=== PATIENT | female | born 1935 | race Caucasian/White ===

== ENCOUNTER 2017-03-07 08:58 | Inpatient (IN) ==
--- NOTE | 2017-03-06 21:09 | Discharge Summary ---
<Jennifer Lemus - Last Filed: 03/06/17 21:07> Date of Encounter: 03/06/17 - Discharge Diagnosis (1) Arthritis of left hip Priority: Primary Status: Acute (2) Status post total hip replacement, left Priority: Primary Status: Acute (3) HTN (hypertension) Priority: Secondary Status: Chronic Qualifiers: Hypertension type: essential hypertension Qualified Code(s): I10 - Essential (primary) hypertension (4) DMII (diabetes mellitus, type 2) Priority: Secondary Status: Chronic Qualifiers: Diabetes mellitus complication status: with unspecified complications Diabetes mellitus intermediate insulin use: unspecified intermediate insulin use status Qualified Code(s): E11.8 - Type 2 diabetes mellitus with unspecified complications (5) Thyroid disease Priority: Secondary Status: Chronic (6) History of TIA (transient ischemic attack) Priority: Secondary Status: Chronic (7) Obesity Priority: Secondary Status: Chronic Qualifiers: Obesity type: due to excess calories Obesity classification: unspecified obesity classification Serious obesity comorbidity presence: unspecified whether serious comorbidity present Qualified Code(s): E66.09 - Other obesity due to excess calories; Z68.37 - Body mass index (BMI) 37.0-37.9, adult; Z68.37 - Body mass index (BMI) 37.0-37.9, adult (8) History of cardiac catheterization Priority: Secondary Status: Chronic (9) Decreased GFR Priority: Secondary Status: Chronic - Discharge Medications Home Medications: Aspirin Enteric Coated [Aspirin EC] 325 mg PO DAILY #21 tablet. 03/06/17 [Rx] OxyCODONE Immed Rel [Roxicodone 5 MG] 5 mg PO Q6HR PRN #28 tablet 03/06/17 [Rx] Aspirin [Lo-Dose Aspirin EC] 81 mg PO DAILY 03/07/17 [History] Bisoprolol Fumarate [Zebeta] 10 mg PO DAILY 03/07/17 [History] Furosemide [Lasix] 40 mg PO BID 03/07/17 [History] Insulin ASPART [NovoLOG] 0 unit SQ TIDWM 03/07/17 [History] Insulin DETEMIR [Levemir] 20 unit SQ HS 03/07/17 [History] Levothyroxine Sodium [Levoxyl] 175 mcg PO DAILY 03/07/17 [History] Lisinopril [Zestril] 20 mg PO BID 03/07/17 [History] Omeprazole [PriLOSEC] 40 mg PO DAILY 03/07/17 [History] Potassium Chloride [K-Tab ER] 10 meq PO DAILY 03/07/17 [History] metFORMIN [Glucophage] 500 mg PO BID 03/07/17 [History] Allergies/Adverse Reactions: 3 Allergy/AdvReac Type Severity Reaction Status Date / Time Amoxicillin [From Augmentin] Allergy Rash Verified 03/07/17 09:35 clavulanic acid Allergy Rash Verified 03/07/17 09:35 [From Augmentin] Penicillins Allergy patient is Verified 03/07/17 09:35 unsure Primary care physician: PCP NONE - Patient Status Disposition: Transfer Inpatient Rehab Fac Condition: Good - Discharge Instructions Follow Up With: NONE,PCP [Primary Care Provider] - - Hospital Course Hospital course: Ms. Herrera is a 81 year old female - Time Spent with Patient Total time spent providing and/or coordinating discharge services: <Ahsan Jean - Last Filed: 03/10/17 08:14> Date of Encounter: 03/10/17 Time of Encounter: 08:13 - Discharge Diagnosis (1) Arthritis of left hip Priority: Primary Status: Chronic (2) Status post total hip replacement, left Priority: Primary Status: Acute (3) HTN (hypertension) Priority: Secondary Status: Chronic Qualifiers: Hypertension type: essential hypertension Qualified Code(s): I10 - Essential (primary) hypertension (4) DMII (diabetes mellitus, type 2) Priority: Secondary Status: Chronic Qualifiers: Diabetes mellitus complication status: with unspecified complications Diabetes mellitus instrument technician insulin use: unspecified intermediate insulin use status Qualified Code(s): E11.8 - Type 2 diabetes mellitus with unspecified complications (5) Thyroid disease Priority: Secondary Status: Chronic (6) History of TIA (transient ischemic attack) Priority: Secondary Status: Chronic (7) Obesity Priority: Secondary Status: Chronic Qualifiers: Obesity type: due to excess calories Obesity classification: adult class 2 (BMI 35 - 39.9) Serious obesity comorbidity presence: unspecified whether serious comorbidity present Body mass index: BMI 37.0-37.9 Qualified Code(s) : E66.09 - Other obesity due to excess calories; Z68.37 - Body mass index (BMI) 37.0-37.9, adult; Z68.37 - Body mass index (BMI) 37.0-37.9, adult (8) History of cardiac catheterization Priority: Secondary Status: Chronic (9) Decreased GFR Priority: Secondary Status: Chronic (10) Acute blood loss anemia Priority: Primary Status: Acute Primary care physician: PCP NONE - Patient Status Functional capacity at discharge: uses cane/walker Overall status at discharge: patient is progressing back to baseline - Hospital Course Hospital course: Ms. Herrera is a 81 year old female The patient had an uneventful postoperative course. They received antibiotics and physical therapy and were discharged in stable condition. There will follow -up in the office in 2 weeks. Status post left total hip replacement - Time Spent with Patient Total time spent providing and/or coordinating discharge services:
--- NOTE | 2017-03-06 21:14 | Physician Discharge Referral ---
<Jennifer Lemus L - Last Filed: 03/06/17 21:13> ExtendedCare Referral Info Transfer To: [facility] Provider in Charge: Provider in Charge after Transfer: PCP Institutional Level of Care: Skilled - Diagnosis (1) Arthritis of left hip Priority: Primary Status: Acute (2) Status post total hip replacement, left Priority: Primary Status: Acute (3) HTN (hypertension) Priority: Secondary Status: Chronic (4) DMII (diabetes mellitus, type 2) Priority: Secondary Status: Chronic (5) Thyroid disease Priority: Secondary Status: Chronic (6) History of TIA (transient ischemic attack) Priority: Secondary Status: Chronic (7) Obesity Priority: Secondary Status: Chronic (8) History of cardiac catheterization Priority: Secondary Status: Chronic (9) Decreased GFR Priority: Secondary Status: Chronic Expected Duration of Placement: < 30 days Prognosis: Good Aware of Diagnosis: Patient Aware of Prognosis: Patient - Transfer Medications Home Medications: Aspirin Enteric Coated [Aspirin EC] 325 mg PO DAILY #21 tablet. 03/06/17 [Rx] OxyCODONE Immed Rel [Roxicodone 5 MG] 5 mg PO Q6HR PRN #28 tablet 03/06/17 [Rx] Aspirin [Lo-Dose Aspirin EC] 81 mg PO DAILY 03/07/17 [History] Bisoprolol Fumarate [Zebeta] 10 mg PO DAILY 03/07/17 [History] Furosemide [Lasix] 40 mg PO BID 03/07/17 [History] Insulin ASPART [NovoLOG] 0 unit SQ TIDWM 03/07/17 [History] Insulin DETEMIR [Levemir] 20 unit SQ HS 03/07/17 [History] Levothyroxine Sodium [Levoxyl] 175 mcg PO DAILY 03/07/17 [History] Lisinopril [Zestril] 20 mg PO BID 03/07/17 [History] Omeprazole [PriLOSEC] 40 mg PO DAILY 03/07/17 [History] Potassium Chloride [K-Tab ER] 10 meq PO DAILY 03/07/17 [History] metFORMIN [Glucophage] 500 mg PO BID 03/07/17 [History] Allergies/Adverse Reactions: 3 Allergy/AdvReac Type Severity Reaction Status Date / Time Amoxicillin [From Augmentin] Allergy Rash Verified 03/07/17 09:35 clavulanic acid Allergy Rash Verified 03/07/17 09:35 [From Augmentin] Penicillins Allergy patient is Verified 03/07/17 09:35 unsure - Respiratory Orders None Smoking Cessation: Smoking cessation has been advised. For more information, call the [facility] Quit Line at 8-408-BBFR-NOW. - Ancillary Orders May use pressure relief devices daily prn, May go on [place] w/family/respon republican w /meds at nurse discretion PRN, May consult with Dentist, Low Pressure Boiler Operator, Squad Sergeant PRN - Mobility Orders Chair, Ambulate - Rehabiliation Orders Rehab Potential: Good Rehab Orders: ROM Exercises, Evaluation for Physical Therapy, Evaluation for Occupational Therapy - Treatments Skin tear care topically daily PRN per policy List/Other: Opsite dressing, leave intact until first post-operative visit. If dressing becomes >50% saturated, contact office, remove dressing and place appropriate dressing in its place. Do not allow for dressing to get wet. Zipline dressing in place, plan to remove at post-operative day #14-16. Total Joint Precautions x 6 weeks Apply cold therapy 3-6x/day for 20 minutes at a time. Encourage ambulation throughout the day Use Incentive spirometer 10x/hour. Elevate affected extremity above heart as tolerated. Brace: Wear hip abduction immobilizer at night x 6 weeks. - Diet Orders Regular CERTIFICATION: I certify that the transfer of the above named patient to an Extended Care Facility is necessary for the continuing treatment of the diagnosis listed. The above information is true and accurate reflection of patient's current condition. Confidential - Redisclosure prohibited without a patient's written consent. <Ahsan Jean - Last Filed: 03/10/17 08:14> - Diagnosis (1) Arthritis of left hip Status: Chronic (2) Status post total hip replacement, left Status: Acute (3) HTN (hypertension) Status: Chronic (4) DMII (diabetes mellitus, type 2) Status: Chronic (5) Thyroid disease Status: Chronic (6) History of TIA (transient ischemic attack) Status: Chronic (7) Obesity Status: Chronic (8) History of cardiac catheterization Status: Chronic (9) Decreased GFR Status: Chronic (10) Acute blood loss anemia Status: Acute - Respiratory Orders Smoking Cessation: Smoking cessation has been advised. For more information, call the [facility] Quit Line at 7-999-QZEQ-NOW. CERTIFICATION: I certify that the transfer of the above named patient to an Extended Care Facility is necessary for the continuing treatment of the diagnosis listed. The above information is true and accurate reflection of patient's current condition. Confidential - Redisclosure prohibited without a patient's written consent.
--- NOTE | 2017-03-07 09:13 | History & Physical Report ---
Date of Encounter: 03/07/17 Time of Encounter: 09:12 24 Hour HP Update - Instructions Instructions: If the History and Physical is less than 30 days old and was completed prior to A.M. admission and or procedure and has NOT been updated on calendar day of procedure please complete this update prior to performing procedure. - Update Patient reports changes in Medical Condition: No Changes in examination, assessment, or condition: No Changes in Medication: No Preop tests/diagnostics Reviewed: Yes Surgery Remains Indicated: Yes Consent for Planned Operative Procedure(s) Verified: Yes - Pre-Operative Checklist Preoperative Checklist Indicated: No Prophylactic Antibiotic Ordered: Yes Is VTE Prophylaxis Indicated?: Yes
[2017-03-07] MEDS ORDERED: Clindamycin 900 MG/50 ML 900 MG/50 ML IV.SOLN IVPB ONE (09:20)
[2017-03-07] MEDS ORDERED: Ringers Solution, Lactated 1,000 ML IVC SCH ×2 (09:30→14:34)
[2017-03-07] MEDS ORDERED: Ethanol\\Acetic Acid\\Na Ace\\Ben 1,000 ML IRRIG.SOLN IR ONE (10:05)
--- NOTE | 2017-03-07 10:19 | Anesthesia Evaluation PreOp ---
Date of Encounter: 03/07/17 Time of Encounter: 10:16 - Past History Planned Operation: Left total hip arthroplasty, robotic Cardiac History: HTN Pulmonary History: Denies Any Significant HX MFG ASSOC History: CVA (mini strokes - no symptoms now) Other Medical History: Diabetes Type II (uses insulin; good control), GERD Anesthesia History: No Prior Anesthetic Complications Alcohol Use: none Drug use: none Medications and Allergies Aspirin Enteric Coated [Aspirin EC] 325 mg PO DAILY #21 tablet. 03/06/17 [Rx] OxyCODONE Immed Rel [Roxicodone 5 MG] 5 mg PO Q6HR PRN #28 tablet 03/06/17 [Rx] Aspirin [Lo-Dose Aspirin EC] 81 mg PO DAILY 03/07/17 [History] Bisoprolol Fumarate [Zebeta] 10 mg PO DAILY 03/07/17 [History] Furosemide [Lasix] 40 mg PO BID 03/07/17 [History] Insulin ASPART [NovoLOG] 0 unit SQ TIDWM 03/07/17 [History] Insulin DETEMIR [Levemir] 20 unit SQ HS 03/07/17 [History] Levothyroxine Sodium [Levoxyl] 175 mcg PO DAILY 03/07/17 [History] Lisinopril [Zestril] 20 mg PO BID 03/07/17 [History] Omeprazole [PriLOSEC] 40 mg PO DAILY 03/07/17 [History] Potassium Chloride [K-Tab ER] 10 meq PO DAILY 03/07/17 [History] metFORMIN [Glucophage] 500 mg PO BID 03/07/17 [History] 3 Allergy/AdvReac Type Severity Reaction Status Date / Time Amoxicillin [From Augmentin] Allergy Rash Verified 03/07/17 09:35 clavulanic acid Allergy Rash Verified 03/07/17 09:35 [From Augmentin] Penicillins Allergy patient is Verified 03/07/17 09:35 unsure - Meds/Allergy Pre-op Review Medications Reviewed: Yes Allergies Reviewed: Yes Beta Blockers on Current Med List: Yes (bisoprolol) If Beta Blockers taken, Date/Time (Last Dose taken): 03-07-17 5:30 am Anesthesia Results - Labs Laboratory Tests 02/24/17 02/24/17 02/24/17 16:30 16:30 16:30 WBC 8.0 Hgb 12.5 Hct 39.7 Plt Count 246 PT 10.6 INR 1.0 APTT 30.0 Sodium 138 Potassium 3.8 Chloride 98 Carbon Dioxide 28 BUN 17 Creatinine 1.18 H Est GFR ( Amer) 53 L Est GFR (Non-Af Amer) 44 L BUN/Creatinine Ratio 14 Est Mean Plasma Glucose Hemoglobin A1c 02/24/17 16:30 WBC Hgb Hct Plt Count PT INR APTT Sodium Potassium Chloride Carbon Dioxide BUN Creatinine Est GFR ( Amer) Est GFR (Non-Af Amer) BUN/Creatinine Ratio Est Mean Plasma Glucose 157 Hemoglobin A1c 7.1 H - Imaging EKG: report reviewed, image reviewed (SINUS RHYTHM MARKED LEFT AXIS DEVIATION PATTERN CONSISTENT WITH PULMONARY DISEASE POOR R WAVE PROGRESSION) Additional studies: cardiac cath: EF 60% no signficiant LV-Ao gradient No sign MR minimal coronary disease Anesthesia Exam Last Vital Signs Temp 98.0 F 03/07/17 09:33 Pulse 69 03/07/17 09:33 Resp 18 03/07/17 09:33 BP 179/85 03/07/17 09:33 Pulse Ox 97 03/07/17 09:33 Weight: 97 kg NPO (# of Hours): > 8 hrs - HEENT Pupil (Motor): Pupils equal, EOMI Mallampati: II Teeth: Edentulous Oral Opening: Greater than 3 - MFG ASSOC LOC: Oriented MFG ASSOC Motor: Normal RUE, Normal LUE, Normal RLE, Normal LLE, Normal Face - Cardiac Rhythm: Regular Murmur: None - Pulmonary Breath Sounds: bilateral Clear Respiratory Effort: Symmetrical Anesthesia Assess/Plan ASA Score: 3 Modified Rockledge Scale for Level of Consciousness: Cooperative, oriented, and tranquil Anesthetic Plan: General Monitoring Plan: Standard Monitors Recovery Plan: PACU
[2017-03-07] MEDS ORDERED: *HR* Rocuronium Bromide 50 MG/5 ML VIAL ONE (11:36)
[2017-03-07] MEDS ORDERED: *HR* Propofol 200 MG/20 ML VIAL IVP ONE (12:01)
[2017-03-07] MEDS ORDERED: Lidocaine -MPF 2% 2 ML VIAL ONE (12:01)
[2017-03-07] MEDS ORDERED: *HR* FentaNYL (PF) 100 MCG/2 ML VIAL ONE (12:01)
[2017-03-07] MEDS ORDERED: *HR* HYDROmorphone (PF) 1 MG/ML SYRINGE IVP PRN ×2 (12:05→14:34)
[2017-03-07] MEDS ORDERED: *HR* Labetalol 20 MG/4 ML SYRINGE IVP PRN (12:05)
[2017-03-07] MEDS ORDERED: Ondansetron 4 MG/2 ML VIAL IVP PRN ×2 (12:05→14:34)
[2017-03-07] MEDS ORDERED: *HR* HYDROmorphone 2 MG/ML SYRINGE ONE (12:31)
--- NOTE | 2017-03-07 12:45 | Orthopedic Operative Note ---
Date of procedure: 03/07/17 Pre-op diagnosis: left hip arthritis Post-op diagnosis: same Procedure: Procedure: left Total Hip Replacment robotic-assisted Estimated blood loss: 300 cc Hardware: Metal and polyethylene replacement. Sheeba DM Cup: 52 cup 8 Femoral size stem Head: 8head with Jane Procedural Notes: Grade 4 arthritic changes femoral head acetabular socket, procedure performed with robotic assistance. Operative procedure: The patient was brought to the operating room and placed on the operating room table. After general anesthesia was administered the patient was placed in the lateral decubitus position with the operative leg up. All pressure points were padded appropriately and the head was stabilized in the neutral position. The operative extremity was prepped and draped in the sterile surgical fashion patient received IV antibiotic prior to skin incision. 3 Steinmann pins were placed in the iliac crest 3 cm proximal to the anterior superior iliac spine this was for the robotic-assisted sensor. This was done through a small 2 cm incision. A standard posterior approach is made to the operative hip, the incision was made through the skin and subcutaneous tissue hemostasis was obtained with Bovie cautery. Using careful sharp dissection the fascia was identified and incised exposing the external rotators. The femoral checkpoint was placed leg length was measured at this time utilizing robotic assistance operative leg 4 mm shorter than non. The external rotators were released off the greater trochanter and tagged with #2 FiberWire suture. The capsule was T'd open and the hip was brought into internal rotation. Patient noted to have grade 4 arthritic changes femoral head. The femoral neck cut was made at the appropriate level roughly 10mm proximal to the lesser trochanter aced on preoperative templating. An anterior capsulotomy was performed for the anterior retractor. Soft tissues removed from the acetabulum. Patient noted to have grade 4 arthritic changes acetabulum. The acetabulum checkpoint was placed confirmed. The acetabulum was then mapped with robotic assistance. Based on the preoperative plan the acetabulum was reamed in one step with a 52 reamer. [id number] was impacted with robotic assistance and 58 degrees of abduction and 17 degrees of anteversion. The hip was brought back in to internal rotation and prepared with the box car checker followed by the canal finder followed by the reaming process to a size 8broaching process in 20 degrees anteversion. It was broached up to the appropriate size 8. Trial reduction revealed leg lengths close to normal. The femoral implant was impacted in place in 20 degrees of anteversion. Trial reduction found the hip to be stable with 8 head and Jane. The trials were removed and the real implants were impacted in place. The hip was reduced, patient had robotic confirmed leg length of 6 mm longer than the contralateral side. The hip had excellent stability with forward flexion to 90 degrees adduction of 30 degrees and internal rotation of 60 degrees. The hip had no shuck. The hips after 2 minutes with a Betadine saline solution. It was irrigated out with 2 L of pulse irrigation. The checkpoints were removed, Steinmann pins were removed. The pin incision and the hip were closed by the PA as well as the hip. The deep tissue was irrigated and closed deep with #1 PDS suture superficially with 0 PDS suture and skin was closed with Dermabond and zip tie. The patient was placed in a sterile dressing and abduction pillow. The patient was extubated and transferred to the recovery room in stable condition. Anesthesia: ANJUM Surgeon: Ahsan Jean Tmh Teacher: Charlotte Paez Condition: stable Disposition: PACU
[2017-03-07] MEDS ORDERED: Neostigmine Methylsulfate 3 MG/3 ML SYRINGE ONE (13:06)
[2017-03-07 13:46] LABS: Hematocrit 37.9 % (35.3-44.9); Hemoglobin 11.9 g/dL (11.5-15.4)
[2017-03-07] MEDS ORDERED: Dextrose Gel 15 GM PO PRN ×2 (14:34)
[2017-03-07] MEDS ORDERED: Naloxone 0.4 MG/ML INJ IVP PRN (14:34)
[2017-03-07] MEDS ORDERED: *HR* OxyCODONE Immed Rel 5 MG TABLET PO PRN (14:34)
[2017-03-07] MEDS ORDERED: Temazepam 15 MG CAPSULE PO PRN (14:34)
[2017-03-07] MEDS ORDERED: D5% in Water 1,000 ML IVC PRN (14:34)
[2017-03-07] MEDS ORDERED: MOM Conc 10 ML UD.LIQ PO PRN (14:34)
[2017-03-07] MEDS ORDERED: Sennosides 8.6 MG TABLET PO PRN (14:34)
[2017-03-07] MEDS ORDERED: *HR* Dextrose 50 % in Water (Syg) 50 ML SYRINGE IVP PRN (14:34)
[2017-03-07] MEDS: Insulin LISPRO 300 UNITS/3 ML VIAL SQ SCH ×3 (14:40→20:40)
--- NOTE | 2017-03-07 14:50 | Anesthesia Evaluation Post Op ---
Date of Encounter: 03/07/17 Time of Encounter: 14:49 - Vital Signs Vital Signs: Last Vital Signs Temp 97.4 F L 03/07/17 14:25 Pulse 50 03/07/17 14:25 Resp 16 03/07/17 14:25 BP 135/77 03/07/17 14:25 Pulse Ox 97 03/07/17 14:25 - Lungs Lungs: Clear Ascult./Percussion - Airway Airway: Non-obstructed - Cardiovascular Regular Rate - Mental Status Mental Status: Alert & Oriented, Answers Appropriately - Pain Pain Scale: 2 - Nausea Vomiting Nausea Vomiting: Not Present - Hydration Hydration: NPO - Discharge PostOp Status: Transfer Patient to floor
[2017-03-07] MEDS: Clindamycin 900 MG/50 ML 900 MG/50 ML IV.SOLN IVPB SCH ×2 (17:10→23:08)
[2017-03-07] MEDS: *HR* Enoxaparin 30 MG/0.3 ML SYRINGE SQ SCH (17:11)
[2017-03-07] MEDS: Furosemide 40 MG TABLET PO SCH (17:11)
[2017-03-07] MEDS: Ascorbic Acid 500 MG TABLET PO SCH (17:11)
[2017-03-07] MEDS ORDERED: *HR* Promethazine 25 MG/ML VIAL IVP ONE (17:26)
[2017-03-07] MEDS ORDERED: *HR* Enoxaparin 30 MG/0.3 ML SYRINGE SQ SCH (18:00)
[2017-03-07] MEDS: *HR* Metformin 500 MG TABLET PO SCH (20:44)
[2017-03-07] MEDS: Insulin DETEMIR 100 UNIT/ML X5UNITS SQ SCH (20:45)
[2017-03-07] MEDS: Lisinopril 20 MG TABLET PO SCH (20:45)
[2017-03-07] MEDS ORDERED: NON-FORMULARY MEDICATION 1 EACH EACH (Insulin Detemir 20 UNIT) SQ SCH (21:00)
[2017-03-07] MEDS: *HR* OxyCODONE Immed Rel 5 MG TABLET PO PRN (23:17)
[2017-03-08] MEDS: *HR* Enoxaparin 30 MG/0.3 ML SYRINGE SQ SCH ×2 (05:12→16:58)
[2017-03-08 06:21] LABS: Hematocrit 31.3 % (35.3-44.9)
[2017-03-08 06:23] LABS: Hemoglobin 9.7 g/dL (11.5-15.4)
[2017-03-08 06:43] LABS: BUN/Creatinine Ratio 17 (6-26); Blood Urea Nitrogen 17 mg/dL (7-20); Calcium 8.4 mg/dL (8.6-10.8); Carbon Dioxide 22 mEq/L (19-29); Chloride 105 mEq/L (98-109); Glucose 152 mg/dL (70-99); Osmolality,Calculated 287 (280-300); Potassium 4.9 mEq/L (3.5-4.5); Sodium 136 mEq/L (136-145); eGFR For African Americans > 60 (> 60); eGFR For Non-African Americans 52 (> 60)
--- NOTE | 2017-03-08 06:43 | Orthopedics Progress Note ---
Date of Encounter: 03/08/17 Time of Encounter: 06:43 - Assessment and Plan (1) Arthritis of left hip Current Visit: No Status: Chronic (2) Status post total hip replacement, left Current Visit: No Status: Acute (3) HTN (hypertension) Current Visit: No Status: Chronic Qualifiers: Hypertension type: essential hypertension Qualified Code(s): I10 - Essential (primary) hypertension (4) DMII (diabetes mellitus, type 2) Current Visit: No Status: Chronic Qualifiers: Diabetes mellitus complication status: with unspecified complications Diabetes mellitus jail insulin use: unspecified jail insulin use status Qualified Code(s): E11.8 - Type 2 diabetes mellitus with unspecified complications (5) Thyroid disease Current Visit: No Status: Chronic (6) History of TIA (transient ischemic attack) Current Visit: No Status: Chronic (7) Obesity Current Visit: No Status: Chronic Qualifiers: Obesity type: due to excess calories Obesity classification: adult class 2 (BMI 35 - 39.9) Serious obesity comorbidity presence: unspecified whether serious comorbidity present Body mass index: BMI 37.0-37.9 Qualified Code(s) : E66.09 - Other obesity due to excess calories; Z68.37 - Body mass index (BMI) 37.0-37.9, adult; Z68.37 - Body mass index (BMI) 37.0-37.9, adult (8) History of cardiac catheterization Current Visit: No Status: Chronic (9) Decreased GFR Current Visit: No Status: Chronic Subjective Interval history: Patient was seen this morning doing well without complaints. Afebrile vital signs stable. Operative extremity: Neurovascularly intact Dressing clean dry and intact Calves nontender Assessment and plan: Continue with postoperative care Hematocrit 31 Objective Vital signs: Vital Signs Temp Pulse Resp BP Pulse Ox 03/08/17 03:18 98.6 F 71 14 118/70 98 03/07/17 23:02 98.5 F 72 16 157/73 97 03/07/17 18:36 97.9 F 67 16 137/68 98 03/07/17 17:36 146/79 03/07/17 17:25 97.8 F 61 18 146/79 98 03/07/17 16:24 97.8 F 63 17 129/77 99 03/07/17 15:19 97.6 F 56 16 133/75 97 03/07/17 14:54 97.5 F L 49 16 126/63 95 03/07/17 14:25 97.4 F L 50 16 135/77 97 03/07/17 14:14 97.2 F L 52 16 152/76 97 03/07/17 14:04 50 16 144/79 98 03/07/17 13:54 52 16 156/78 97 03/07/17 13:44 97.7 F 54 16 158/79 99 03/07/17 13:34 69 18 172/95 94 03/07/17 13:24 68 18 173/88 98 03/07/17 13:14 97.9 F 80 20 151/88 96 03/07/17 10:30 98.0 F 69 18 179/85 97 03/07/17 09:33 98.0 F 69 18 179/85 97 03/07/17 09:23 98.0 F 69 18 179/85 97 Intake and Output 03/07/17 03/07/17 03/08/17 15:59 23:59 07:59 Intake Total 400 / 400 750 / 750 Output Total 300 / 300 0 / 0 0 / 0 Balance -300 / -300 400 / 400 750 / 750 Intake: IV Fluids 50 / 50 50 / 50 Cleocin Premix 900 MG/50 ML 900 50 / 50 50 / 50 mg In 50 ml @ 50 mls/hr IVPB Q8HR ANETA Rx#:[id number] Oral 350 / 350 700 / 700 Output: Urine 0 / 0 0 / 0 Estimated Blood Loss 300 / 300 Other: # Voids 1 # Urine Diapers 1 Weight 97.069 kg 97.9 kg Blood Glucose* 148 176 Patient Weight 03/08/17 23:59 Weight 97.9 kg - Labs CBC & BMP: 03/08/17 04:31 Labs: Abnormal lab results Hgb 9.7 g/dL (11.5-15.4) L D 03/08/17 04:31 Hct 31.3 % (35.3-44.9) L 03/08/17 04:31 POC Glucose 176 (58-89) H 03/07/17 20:38 - VTE Documentation of Mechanical Device: Venous foot pump, device Consult Discharge Plan - Plan Referrals: NONE,PCP [Primary Care Provider] -
[2017-03-08] MEDS: Furosemide 40 MG TABLET PO SCH ×2 (09:55→16:58)
[2017-03-08] MEDS: Aspirin Enteric Coated 81 MG Tablet PO SCH (09:55)
[2017-03-08] MEDS: *HR* Metformin 500 MG TABLET PO SCH ×2 (09:55→21:00)
[2017-03-08] MEDS: Multivit/Ca/Min/Fe/FA 1 TAB TABLET PO SCH (09:55)
[2017-03-08] MEDS: Lisinopril 20 MG TABLET PO SCH ×2 (09:55→21:00)
[2017-03-08] MEDS: Ascorbic Acid 500 MG TABLET PO SCH ×2 (09:55→16:58)
[2017-03-08] MEDS: Insulin LISPRO 300 UNITS/3 ML VIAL SQ SCH ×4 (09:56→21:01)
[2017-03-08] MEDS: (Bisoprolol Fumarate [Zebeta] 10 MG) PO SCH (09:56)
[2017-03-08] MEDS: *HR* OxyCODONE Immed Rel 5 MG TABLET PO PRN ×2 (09:59→21:06)
--- NOTE | 2017-03-08 16:19 | Event Note ---
Date of Encounter: 03/08/17 Time of Encounter: 16:18 Patient participating in PT, doing well. No new complaints.
[2017-03-08] MEDS: Insulin DETEMIR 100 UNIT/ML X5UNITS SQ SCH (21:00)
[2017-03-09] MEDS: *HR* Enoxaparin 30 MG/0.3 ML SYRINGE SQ SCH ×2 (05:07→18:16)
[2017-03-09 05:19] LABS: Hematocrit 28.5 % (35.3-44.9); Hemoglobin 9.2 g/dL (11.5-15.4)
[2017-03-09 05:54] LABS: Calcium 8.5 mg/dL (8.6-10.8); Potassium 4.4 mEq/L (3.5-4.5)
[2017-03-09] MEDS: Insulin LISPRO 300 UNITS/3 ML VIAL SQ SCH ×4 (07:16→21:19)
--- NOTE | 2017-03-09 07:41 | Orthopedics Progress Note ---
Date of Encounter: 03/09/17 Time of Encounter: 07:41 - Assessment and Plan (1) Arthritis of left hip Current Visit: No Status: Chronic (2) Status post total hip replacement, left Current Visit: No Status: Acute (3) HTN (hypertension) Current Visit: No Status: Chronic Qualifiers: Hypertension type: essential hypertension Qualified Code(s): I10 - Essential (primary) hypertension (4) DMII (diabetes mellitus, type 2) Current Visit: No Status: Chronic Qualifiers: Diabetes mellitus complication status: with unspecified complications Diabetes mellitus halfway insulin use: unspecified halfway insulin use status Qualified Code(s): E11.8 - Type 2 diabetes mellitus with unspecified complications (5) Thyroid disease Current Visit: No Status: Chronic (6) History of TIA (transient ischemic attack) Current Visit: No Status: Chronic (7) Obesity Current Visit: No Status: Chronic Qualifiers: Obesity type: due to excess calories Obesity classification: adult class 2 (BMI 35 - 39.9) Serious obesity comorbidity presence: unspecified whether serious comorbidity present Body mass index: BMI 37.0-37.9 Qualified Code(s) : E66.09 - Other obesity due to excess calories; Z68.37 - Body mass index (BMI) 37.0-37.9, adult; Z68.37 - Body mass index (BMI) 37.0-37.9, adult (8) History of cardiac catheterization Current Visit: No Status: Chronic (9) Decreased GFR Current Visit: No Status: Chronic (10) Acute blood loss anemia Current Visit: Yes Status: Acute Subjective Interval history: Patient was seen this morning doing well without complaints. Afebrile vital signs stable. Operative extremity: Neurovascularly intact Dressing clean dry and intact Calves nontender Assessment and plan: Continue with postoperative care Hematocrit 28 Objective Vital signs: Vital Signs Temp Pulse Resp BP Pulse Ox 03/09/17 06:28 99.1 F 78 18 116/69 97 03/09/17 04:41 98.2 F 79 17 108/51 96 03/08/17 23:43 97.7 F 81 17 132/73 96 03/08/17 18:30 99.1 F 80 18 127/69 96 03/08/17 15:49 98.3 F 68 18 121/71 94 03/08/17 10:59 99.1 F 72 18 106/63 94 Intake and Output 03/08/17 03/08/17 03/09/17 15:59 23:59 07:59 Intake Total 0 / 0 120 / 120 Output Total 400 / 400 400 / 400 Balance 0 / 0 -280 / -280 -400 / -400 Intake: Oral 0 / 0 120 / 120 Output: Urine 400 / 400 400 / 400 Other: Meal Dinner Percent of Meal Consumed 75% # Urine Diapers 1 Weight 99.705 kg Blood Glucose* 192 200 135 - Labs CBC & BMP: 03/09/17 04:25 03/09/17 04:25 Labs: Abnormal lab results Hgb 9.2 g/dL (11.5-15.4) L 03/09/17 04:25 Hct 28.5 % (35.3-44.9) L 03/09/17 04:25 Sodium 134 mEq/L (136-145) L 03/09/17 04:25 BUN 23 mg/dL (7-20) H 03/09/17 04:25 Creatinine 1.31 mg/dL (0.57-1.11) H 03/09/17 04:25 Est GFR ( Amer) 47 (> 60) L 03/09/17 04:25 Est GFR (Non-Af Amer) 39 (> 60) L 03/09/17 04:25 Glucose 151 mg/dL (70-99) H 03/09/17 04:25 POC Glucose 135 (58-89) H 03/09/17 07:05 Calcium 8.5 mg/dL (8.6-10.8) L 03/09/17 04:25 - VTE Documentation of Mechanical Device: Venous foot pump, device Consult Discharge Plan - Plan Referrals: NONE,PCP [Primary Care Provider] -
[2017-03-09] MEDS ORDERED: 0.9 % Sodium Chloride 500 ML IVC ONE (08:25)
[2017-03-09] MEDS: Lisinopril 20 MG TABLET PO SCH ×2 (09:27→21:19)
[2017-03-09] MEDS: Multivit/Ca/Min/Fe/FA 1 TAB TABLET PO SCH (09:27)
[2017-03-09] MEDS: *HR* Metformin 500 MG TABLET PO SCH ×2 (09:27→21:18)
[2017-03-09] MEDS: Furosemide 40 MG TABLET PO SCH ×2 (09:27→18:15)
[2017-03-09] MEDS: Ascorbic Acid 500 MG TABLET PO SCH ×2 (09:27→18:16)
[2017-03-09] MEDS: Aspirin Enteric Coated 81 MG Tablet PO SCH (09:27)
[2017-03-09] MEDS: (Bisoprolol Fumarate [Zebeta] 10 MG) PO SCH (09:28)
[2017-03-09] MEDS: *HR* OxyCODONE Immed Rel 5 MG TABLET PO PRN ×2 (09:34→23:15)
--- NOTE | 2017-03-09 15:53 | Event Note ---
Date of Encounter: 03/09/17 Time of Encounter: 17:10 PCR- POD#2 Left THR 03/07/17 PCR - Patient seen at bedside. Pain control: Adequate Participating in PT. All questions and concerns addressed. Educated on use of incentive spirometer, ambulation, and hydration. Patient educated on post-operative restrictions and care. Addressed: see above. And patient has yeast dermatitis to left groin. Apply Nystatin powder 2-3 times daily after cleansing of skin with soap and water. Make sure to thoroughly dry. Nurse requested to change dressing with 4x4 and ABD with paper tape to keep incision clean and dry as yeast area extends nearly to incision and is under occlusive dressing. Will reassess tomorrow. D/C plan: Sophie 03/10/17
[2017-03-09] MEDS: Insulin DETEMIR 100 UNIT/ML X5UNITS SQ SCH (21:18)
[2017-03-09] MEDS: Nystatin POWDER 30 GM BOTTLE TP SCH (21:19)
[2017-03-10] MEDS: *HR* OxyCODONE Immed Rel 5 MG TABLET PO PRN ×2 (05:17→13:12)
[2017-03-10] MEDS: *HR* Enoxaparin 30 MG/0.3 ML SYRINGE SQ SCH (05:17)
--- NOTE | 2017-03-10 08:14 | Orthopedics Progress Note ---
Date of Encounter: 03/10/17 Time of Encounter: 08:14 - Assessment and Plan (1) Arthritis of left hip Current Visit: No Status: Chronic (2) Status post total hip replacement, left Current Visit: No Status: Acute (3) HTN (hypertension) Current Visit: No Status: Chronic Qualifiers: Hypertension type: essential hypertension Qualified Code(s): I10 - Essential (primary) hypertension (4) DMII (diabetes mellitus, type 2) Current Visit: No Status: Chronic Qualifiers: Diabetes mellitus complication status: with unspecified complications Diabetes mellitus penitentiary insulin use: unspecified penitentiary insulin use status Qualified Code(s): E11.8 - Type 2 diabetes mellitus with unspecified complications (5) Thyroid disease Current Visit: No Status: Chronic (6) History of TIA (transient ischemic attack) Current Visit: No Status: Chronic (7) Obesity Current Visit: No Status: Chronic Qualifiers: Obesity type: due to excess calories Obesity classification: adult class 2 (BMI 35 - 39.9) Serious obesity comorbidity presence: unspecified whether serious comorbidity present Body mass index: BMI 37.0-37.9 Qualified Code(s) : E66.09 - Other obesity due to excess calories; Z68.37 - Body mass index (BMI) 37.0-37.9, adult; Z68.37 - Body mass index (BMI) 37.0-37.9, adult (8) History of cardiac catheterization Current Visit: No Status: Chronic (9) Decreased GFR Current Visit: No Status: Chronic (10) Acute blood loss anemia Current Visit: Yes Status: Acute Subjective Interval history: Patient was seen this morning doing well without complaints. Afebrile vital signs stable. Operative extremity: Neurovascularly intact Dressing clean dry and intact Calves nontender Assessment and plan: Continue with postoperative care Discharged today Objective Vital signs: Vital Signs Temp Pulse Resp BP Pulse Ox 03/10/17 07:00 98.7 F 78 16 119/73 95 03/10/17 03:37 98.3 F 94 16 117/61 94 03/09/17 23:47 98.2 F 88 16 113/64 94 03/09/17 21:01 99.7 F H 100 18 127/64 99 03/09/17 15:06 99.3 F 93 18 115/70 93 03/09/17 11:23 98.6 F 94 18 115/72 96 Intake and Output 03/09/17 03/10/17 03/10/17 23:59 07:59 15:59 Intake Total 240 / 240 Output Total 1000 / 1000 600 / 600 Balance -760 / -760 -600 / -600 Intake: Oral 240 / 240 Output: Urine 1000 / 1000 600 / 600 Other: Meal Dinner Percent of Meal Consumed 25% # Voids 1 Weight 97.069 kg Blood Glucose* 225 143 Patient Weight 03/10/17 23:59 Weight 97.069 kg - Labs CBC & BMP: 03/09/17 04:25 03/09/17 04:25 Labs: Abnormal lab results Hgb 9.2 g/dL (11.5-15.4) L 03/09/17 04:25 Hct 28.5 % (35.3-44.9) L 03/09/17 04:25 Sodium 134 mEq/L (136-145) L 03/09/17 04:25 BUN 23 mg/dL (7-20) H 03/09/17 04:25 Creatinine 1.31 mg/dL (0.57-1.11) H 03/09/17 04:25 Est GFR ( Amer) 47 (> 60) L 03/09/17 04:25 Est GFR (Non-Af Amer) 39 (> 60) L 03/09/17 04:25 Glucose 151 mg/dL (70-99) H 03/09/17 04:25 POC Glucose 177 (58-89) H 03/09/17 16:40 Calcium 8.5 mg/dL (8.6-10.8) L 03/09/17 04:25 - VTE Documentation of Mechanical Device: Venous foot pump, device Consult Discharge Plan - Plan Referrals: NONE,PCP [Primary Care Provider] -
[2017-03-10] MEDS: Aspirin Enteric Coated 81 MG Tablet PO SCH (08:20)
[2017-03-10] MEDS: Insulin LISPRO 300 UNITS/3 ML VIAL SQ SCH ×2 (08:20→12:41)
[2017-03-10] MEDS: *HR* Metformin 500 MG TABLET PO SCH (08:20)
[2017-03-10] MEDS: Furosemide 40 MG TABLET PO SCH (08:20)
[2017-03-10] MEDS: Lisinopril 20 MG TABLET PO SCH (08:20)
[2017-03-10] MEDS: Ascorbic Acid 500 MG TABLET PO SCH (08:20)
[2017-03-10] MEDS: Multivit/Ca/Min/Fe/FA 1 TAB TABLET PO SCH (08:20)
[2017-03-10] MEDS: Nystatin POWDER 30 GM BOTTLE TP SCH (08:21)
[2017-03-10] MEDS: (Bisoprolol Fumarate [Zebeta] 10 MG) PO SCH (08:21)
[2017-03-10] MEDS ORDERED: Ondansetron ODT 4 MG TAB.RAPDIS SL ONE (09:32)
[2017-03-10 11:25] VITALS: BP 123/78
== END 2017-03-10 14:58 | DRG 470 ==
LOC: SAMDAY 08:58 → 3NENU 14:30
PROVIDERS: ADMIT Orthopaedic Surgery; ATTEND Orthopaedic Surgery